=== PATIENT | female | born 1940 | race Caucasian/White ===

== ENCOUNTER → 2018-01-02 | Outpatient (CLI) | payer MEDICARE ==
[~2018-01-02] MED LIST: DOXEPIN HCL25 MG PO; IRON325 M1 PO; LEVOTHYROXINE75 MCG PO; METOPROLOL SUCC50 MG PO; MIRTAZAPINE15 MG PO; MIRTAZAPINE7.5 MG PO
--- NOTE | 2018-01-02 12:37 | Diagnostic Imaging Report ---
EXAM: DXA BONE DENSITY INDICATIONS: Osteoporsis COMPARISON: None. FINDINGS: Proximal left femur bone mineral density (BMD) (g/cm2):0.766 Femur T-score (standard deviation relative to young adult mean BMD): -0.7 Femur Z-score (standard deviation relative to age-matched control group):1.4 Lumbar bone mineral density (BMD) (g/cm2):0.846 Lumbar T-score (standard deviation relative to young adult mean BMD): -1.8 Lumbar Z-score (standard deviation relative to age-matched control group):0.6 Change since prior exam (%): Femur:-6.0% Spine:+5.2% Change since oldest prior exam (%): Femur:-6.0% Spine:+5.2% CONCLUSION: 1. Bone mineral density in the left femur is classified as normal. Fracture risk is low. 2. Bone mineral density in the spine is classified as osteopenia. Fracture risk is moderate. World Health Organization Classification: *The Z-score is provided for informational purposes. The T-score is preferable for clinical decisions. When comparing exams, a change of >4% is considered statistically significant. SUGGESTED RECOMMENDATIONS: Normal \T\ Osteopenia:Consideration should be given to use of calcium supplementation, daily multiple vitamins and adequate exercise, as preventive measures against osteoporosis, if clinically indicated. Osteoporosis \T\ Severe Osteoporosis:In addition to the above, consideration should be given to medical therapy against osteoporosis, if clinically indicated. Dictated by: Kash Castellon M.D. on 01/02/2018 at 12:37 Electronically approved by: Kash Castellon M.D. on 01/02/2018 at 12:37
== END ==
LOC: DX 11:01
PROVIDERS: ATTEND Emergency Medicine
DX: Z12.31 Encounter for screening mammogram for malignant neoplasm of breast (principal); M81.0 Age-related osteoporosis without current pathological fracture
CPT/HCPCS: 77080

== ENCOUNTER → 2022-04-02 | Outpatient (CLI) | payer MEDICARE ==
[~2022-04-02] MED LIST changes: +IOPAMIDOL 370 MG/ML 100 ML INFUS..BTL INJ ONE
[2022-04-02 14:26] LABS: CREATININE, SERUM 0.86 mg/dL (0.57-1.11)
== END ==
LOC: CT 13:37
PROVIDERS: ATTEND Emergency Medicine
DX: R10.9 Unspecified abdominal pain (principal)
CPT/HCPCS: 36415; 74177; 82565; 84520; Q9967